=== PATIENT | female | born 1990 | race African-American/Black ===

== ENCOUNTER 2017-05-25 14:24 | Emergency (ER) | payer OTHER ==
[~2017-05-25] VITALS: Ht 160 cm; Wt 87.7 kg
[2017-05-25 17:05] LABS: CHLORIDE 103 mEq/L (99-109); POTASSIUM 3.8 mEq/L (3.7-5.4); PROTHROMBIN TIME 11.6 SEC (10.2-12.9); SODIUM 136 mEq/L (136-147)
[2017-05-25 17:07] LABS: GLUCOSE 94 mg/dL (70-99); PTT 32.3 SEC (25-37)
[2017-05-25 17:09] LABS: ANION GAP 7 MEQ/L (2-14)
[2017-05-25 17:10] LABS: HEMATOCRIT 37.9 % (36.0-46.0); MCH 23.7 PG (29.0-34.0); MCHC 32.2 G/DL (30.0-36.0); MCV 73.6 FL (83-99); MEAN PLAT.VOLUME 10.6 uM^3 (9.5-12.4); PLATELET COUNT 230 K/uL (156-360); RBC DIS.WIDTH-CV 13.7 % (11.8-14.6); RBC DIS.WIDTH-SD 36.6 % (39-53); RED BLOOD COUNT 5.15 M/uL (3.80-5.20); WHITE BLOOD COUNT 3.9 K/uL (4.1-10.2)
[2017-05-25 17:11] LABS: GFR ESTIMATE (CALCULATED) > 59 mL/min/
[2017-05-25 17:12] LABS: UREA NITROGEN (BUN) 13 mg/dL (9-23)
[2017-05-25 17:32] LABS: ADD MIUA? YES; BILIRUBIN NEGATIVE; BLOOD NEGATIVE; COLOR YELLOW ((YELLOW)); GLUCOSE (STRIP) NEGATIVE; KETONES NEGATIVE; LEUKOCYTES NEGATIVE; NITRITE NEGATIVE; PROTEIN (STRIP) NEGATIVE; SPECIFIC GRAVITY 1.017 (1.000-1.030); UROBILINOGEN 0.2 MG/DL (0.2-1.0)
[2017-05-25 17:39] LABS: BACTERIA NONE SEEN /HPF; EPITHELIAL CELLS 1+ /HPF; MUCUS TRACE /LPF; RED BLOOD CELLS 0-5 /HPF (0-5); WHITE BLOOD CELLS 0-5 /HPF (0-5)
[2017-05-25] MEDS ORDERED: VALIUM5 MG PO (21:33)
[2017-05-25] MEDS ORDERED: FIORICET 50-301 EAC1 PO (21:33)
[2017-05-25 23:20] VITALS: BP 138/80
== END 2017-05-25 23:25 | disposition home or self-care (01) ==
LOC: EME 14:24
PROVIDERS: Physician Assistant
DX: R51 Headache (principal); M62.838 Other muscle spasm; I67.1 Cerebral aneurysm, nonruptured; I10 Essential (primary) hypertension; F17.200 Nicotine dependence, unspecified, uncomplicated; Z86.73 Personal history of transient ischemic attack (TIA), and cerebral infarction without residual deficits
CPT/HCPCS: 70496; 70498; 80048; 81003; 85027; 85610; 85730; 99281; 99285; J2060; J3010; J7040

== ENCOUNTER 2017-06-27 18:30 | Emergency (ER) | payer OTHER ==
[~2017-06-27] VITALS: Ht 160 cm; Wt 89.5 kg
[~2017-06-27 18:30] MED LIST: FIORICET 50-301 EAC1 PO; VALIUM5 MG PO
[2017-06-27 20:00] LABS: HEMATOCRIT 36.8 % (36.0-46.0); MCH 23.5 PG (29.0-34.0); MCHC 31.5 G/DL (30.0-36.0); MCV 74.5 FL (83-99); MEAN PLAT.VOLUME 9.8 uM^3 (9.5-12.4); PLATELET COUNT 239 K/uL (156-360); RBC DIS.WIDTH-CV 13.7 % (11.8-14.6); RBC DIS.WIDTH-SD 36.4 % (39-53); RED BLOOD COUNT 4.94 M/uL (3.80-5.20); WHITE BLOOD COUNT 3.9 K/uL (4.1-10.2)
[2017-06-27 20:07] LABS: CHLORIDE 104 mEq/L (99-109); POTASSIUM 4.2 mEq/L (3.7-5.4); SODIUM 138 mEq/L (136-147)
[2017-06-27 20:08] LABS: GLUCOSE 90 mg/dL (70-99)
[2017-06-27 20:10] LABS: ANION GAP 5 MEQ/L (2-14)
[2017-06-27 20:12] LABS: GFR ESTIMATE (CALCULATED) > 59 mL/min/
[2017-06-27 20:13] LABS: UREA NITROGEN (BUN) 15 mg/dL (9-23)
[2017-06-27] MEDS ORDERED: VALIUM5 MG PO (22:41)
[2017-06-27] MEDS ORDERED: PREDNISONE20 MG PO (22:41)
[2017-06-27] MEDS ORDERED: INDOCIN50 MG PO (22:41)
[2017-06-27] MEDS ORDERED: ZOFRAN ODT4 MG PO (22:41)
[2017-06-27 23:35] VITALS: BP 124/72
== END 2017-06-27 23:37 | disposition home or self-care (01) ==
LOC: RME 18:30 → EME 18:30 → RME 23:37
DX: R51 Headache (principal); I10 Essential (primary) hypertension; F17.200 Nicotine dependence, unspecified, uncomplicated; Z86.73 Personal history of transient ischemic attack (TIA), and cerebral infarction without residual deficits
CPT/HCPCS: 70450; 71020; 80048; 85027; 99281; 99284; J1100; J1885

== ENCOUNTER 2017-06-28 23:29 | Emergency (ER) | payer OTHER ==
[~2017-06-28] VITALS: Ht 160 cm; Wt 89.7 kg
[~2017-06-28 23:29] MED LIST changes: +INDOCIN50 MG PO; +PREDNISONE20 MG PO; +ZOFRAN ODT4 MG PO
[2017-06-29] MEDS ORDERED: COMPAZINE10 MG PO (04:58)
[2017-06-29 05:34] VITALS: BP 105/57
== END 2017-06-29 05:44 | disposition home or self-care (01) ==
LOC: EME 23:29
DX: G43.909 Migraine, unspecified, not intractable, without status migrainosus (principal); Z86.73 Personal history of transient ischemic attack (TIA), and cerebral infarction without residual deficits; F17.200 Nicotine dependence, unspecified, uncomplicated
CPT/HCPCS: 99281; 99285; J0780; J1200; J1885; J7030

== ENCOUNTER 2017-11-18 14:45 | Emergency (ER) | payer OTHER ==
[~2017-11-18] VITALS: Ht 160 cm; Wt 90.4 kg
[~2017-11-18 14:45] MED LIST changes: +COMPAZINE10 MG PO
[2017-11-18 16:04] LABS: APPEARANCE SL.HAZY ((CLEAR)); BILIRUBIN NEGATIVE; BLOOD NEGATIVE; COLOR YELLOW ((YELLOW)); GLUCOSE (STRIP) NEGATIVE; KETONES NEGATIVE; LEUKOCYTES TRACE; NITRITE NEGATIVE; PROTEIN (STRIP) NEGATIVE; SPECIFIC GRAVITY 1.019 (1.000-1.030); UROBILINOGEN 0.2 MG/DL (0.2-1.0)
[2017-11-18 16:13] LABS: HEMATOCRIT 38.1 % (36.0-46.0); HEMOGLOBIN 12.1 G/DL (11.9-15.5); MCH 23.8 PG (29.0-34.0); MCHC 31.8 G/DL (30.0-36.0); PLATELET COUNT 268 K/uL (156-360); RBC DIS.WIDTH-CV 14.4 % (11.8-14.6); RBC DIS.WIDTH-SD 38.8 % (39-53); RED BLOOD COUNT 5.08 M/uL (3.80-5.20); WHITE BLOOD COUNT 5.9 K/uL (4.1-10.2)
[2017-11-18 16:24] LABS: ALBUMIN 4.1 g/dL (3.2-4.8)
[2017-11-18 16:25] LABS: BACTERIA RARE /HPF; EPITHELIAL CELLS 1+ /HPF; MUCUS TRACE /LPF; RED BLOOD CELLS 0-5 /HPF (0-5); WHITE BLOOD CELLS 0-5 /HPF (0-5)
[2017-11-18 16:25] LABS: CHLORIDE 104 mEq/L (99-109); POTASSIUM 4.5 mEq/L (3.7-5.4); SODIUM 139 mEq/L (136-147)
[2017-11-18 16:27] LABS: GLUCOSE 89 mg/dL (70-99); TOTAL PROTEIN 7.5 g/dL (6.4-8.3)
[2017-11-18 16:29] LABS: TOTAL BILIRUBIN 0.3 mg/dL (0.0-1.0)
[2017-11-18 16:30] LABS: ALKALINE PHOSPHATASE 69 IU/L (3-129)
[2017-11-18 16:31] LABS: CREATININE 0.8 mg/dL (0.6-1.3); GFR ESTIMATE (CALCULATED) > 59 mL/min/
[2017-11-18 16:32] LABS: AST (GOT) 17 IU/L (2-34); UREA NITROGEN (BUN) 14 mg/dL (9-23)
[2017-11-18 16:33] LABS: ALT (GPT) 14 IU/L (3-49)
[2017-11-18 16:34] LABS: LIPASE 12 U/L (1.0-51.0)
[2017-11-18 16:40] LABS: QUANTITATIVE HCG < 4.0 MIU/ML
[2017-11-18 17:12] VITALS: BP 00/00
== END 2017-11-18 17:14 | disposition left against medical advice (07) ==
LOC: EME 14:45
PROVIDERS: Nurse Practitioner Family
DX: R10.30 Lower abdominal pain, unspecified (principal); N89.8 Other specified noninflammatory disorders of vagina; I10 Essential (primary) hypertension; Z87.891 Personal history of nicotine dependence
CPT/HCPCS: 80053; 81003; 83690; 84702; 85027; 87210; 99281; 99284

== ENCOUNTER 2018-01-09 12:55 | Emergency (ER) | payer OTHER ==
[~2018-01-09] VITALS: Ht 160 cm; Wt 97.0 kg
[2018-01-09] MEDS ORDERED: REGLAN10 MG PO (16:38)
[2018-01-09 16:41] VITALS: BP 145/88
== END 2018-01-09 16:52 | disposition home or self-care (01) ==
LOC: EME 12:55
DX: G43.909 Migraine, unspecified, not intractable, without status migrainosus (principal); Z87.891 Personal history of nicotine dependence
CPT/HCPCS: 99281; 99285; J0780; J1200; J1885; J7030

== ENCOUNTER 2018-02-01 22:09 | Emergency (ER) | payer OTHER ==
[~2018-02-01] VITALS: Ht 160 cm; Wt 101.1 kg
[~2018-02-01 22:09] MED LIST changes: +REGLAN10 MG PO
[2018-02-01 23:13] LABS: BASOPHIL (%) 0.5 % (0-1); EOSINOPHIL (%) 2.4 % (0-5); EOSINOPHIL COUNT 0.1 K/uL (0-0.3); HEMATOCRIT 34.4 % (36.0-46.0); IMMATURE GRANULOCYTE (%) 0.2 % (0.0-0.7); LYMPHOCYTE (%) 45.6 % (15-42); LYMPHOCYTE COUNT 2.6 K/uL (1.0-2.8); MCH 23.7 PG (29.0-34.0); MONOCYTE (%) 8.5 % (3-12); MONOCYTE COUNT 0.5 K/uL (0-0.8); NEUTROPHIL (%) 42.8 % (45-76); NEUTROPHIL COUNT 2.5 K/uL (1.8-6.4); PLATELET COUNT 200 K/uL (156-360); RBC DIS.WIDTH-CV 13.9 % (11.8-14.6); RBC DIS.WIDTH-SD 36.9 % (39-53); RED BLOOD COUNT 4.65 M/uL (3.80-5.20); WHITE BLOOD COUNT 5.8 K/uL (4.1-10.2)
[2018-02-01 23:16] LABS: CHLORIDE 106 mEq/L (99-109); SODIUM 141 mEq/L (136-147)
[2018-02-01 23:18] LABS: GLUCOSE 89 mg/dL (70-99)
[2018-02-01 23:22] LABS: CREATININE 0.8 mg/dL (0.6-1.3); GFR ESTIMATE (CALCULATED) > 59 mL/min/
[2018-02-01 23:23] LABS: UREA NITROGEN (BUN) 9 mg/dL (9-23)
[2018-02-02 00:10] VITALS: BP 135/87
== END 2018-02-02 00:10 | disposition home or self-care (01) ==
LOC: EME → EDBD 22:09 → EME 02-02 00:10
PROVIDERS: Emergency Medicine
DX: G43.909 Migraine, unspecified, not intractable, without status migrainosus (principal); Z86.73 Personal history of transient ischemic attack (TIA), and cerebral infarction without residual deficits; Z87.891 Personal history of nicotine dependence
CPT/HCPCS: 80048; 85025; 99281; 99284; J1100; J1200; J2765; J7030